=== PATIENT | male | born 1950 | race Two or more races ===

== ENCOUNTER 2018-04-24 09:14 | Day surgery (SDC) | payer MEDICARE, OTHER ==
[~2018-04-24] VITALS: Ht 177.8 cm; Wt 127.9 kg
[~2018-04-24 09:14] MED LIST: Cipro500 MG PO; Flagyl500 MG PO; Norco 5-325 Ta1 EACH PO
[2018-04-24] MEDS ORDERED: LISI20 PO (10:28)
[2018-04-24] MEDS ORDERED: AMLO5 PO (10:28)
[2018-04-24] MEDS ORDERED: Flonase 0.05% N16 GM (10:29)
[2018-04-24] MEDS ORDERED: MECL12.5 PO (10:29)
== END 2018-04-24 22:47 | disposition home or self-care (01) ==
LOC: ORSCMMR 09:14 → ORD 10:30 → ORSCMMR 22:47
PROVIDERS: Internal Medicine Gastroenterology
PROC: 0DB58ZX Excision of Esophagus, Via Natural or Artificial Opening Endoscopic, Diagnostic (ICD-10-PCS; principal; 2018-04-24 10:30)
PROC: 0DB68ZX Excision of Stomach, Via Natural or Artificial Opening Endoscopic, Diagnostic (ICD-10-PCS; principal; 2018-04-24 10:30)
PROC: 0DB48ZX Excision of Esophagogastric Junction, Via Natural or Artificial Opening Endoscopic, Diagnostic (ICD-10-PCS; principal; 2018-04-24 10:30)
DX: K21.0 Gastro-esophageal reflux disease with esophagitis (principal); K22.2 Esophageal obstruction; K44.9 Diaphragmatic hernia without obstruction or gangrene; I10 Essential (primary) hypertension; Z87.891 Personal history of nicotine dependence; Z79.899 Other long term (current) drug therapy
CPT/HCPCS: 88305; 88342; J7120

== ENCOUNTER → 2019-02-11 | Outpatient (CLI) | payer MEDICARE, OTHER ==
[~2019-02-11] MED LIST changes: +AMLO5 PO; +Flonase 0.05% N16 GM; +LISI20 PO; +MECL12.5 PO
== END | disposition home or self-care (01) ==
LOC: LAB SHORT 07:33 → PLD 07:33
DX: D11.0 Benign neoplasm of parotid gland (principal); K11.1 Hypertrophy of salivary gland
CPT/HCPCS: 88173

== ENCOUNTER → 2021-01-02 | Outpatient (CLI) | payer MEDICARE, OTHER | END | disposition home or self-care (01) | LOC: LAB SHORT 07:51 | DX: D48.5 Neoplasm of uncertain behavior of skin (principal) | CPT/HCPCS: 88305; 88312 ==

== ENCOUNTER → 2023-12-06 | Outpatient (CLI) | payer MEDICARE, OTHER ==
[2023-12-06 10:01] LABS: BASOPHILS PERCENT AUTO 0 % (0-2); EOSINOPHILS ABSOLUTE AUTO 0.05 K/mm3 (0.00-0.68); EOSINOPHILS PERCENT AUTO 2 % (0-6); Hematocrit 36.7 % (37.0-53.0); Hemoglobin 12.8 g/dL (13.5-17.5); IMMATURE GRAN ABSOLUTE AUTO 0.01 K/mm3 (0.00-0.10); IMMATURE GRAN PERCENT AUTO 0 % (0-1); LYMPHOCYTES ABSOLUTE AUTO 1.23 K/mm3 (0.84-5.20); LYMPHOCYTES PERCENT AUTO 36 % (21-46); MONOCYTES ABSOLUTE AUTO 0.16 K/mm3 (0.16-1.47); MONOCYTES PERCENT AUTO 5 % (4-13); Mean Corpuscular HGB 34.4 pg (26.0-34.0); Mean Corpuscular HGB Conc 34.9 g/dL (31.5-36.5); Mean Corpuscular Volume 99 fL (80-100); Mean Platelet Volume 9.9 fL (9.1-12.4); NEUTROPHILS ABSOLUTE AUTO 1.96 K/mm3 (1.96-9.15); NEUTROPHILS PERCENT AUTO 57 % (41-73); Platelet Count 127 K/mm3 (150-400); RDW Coefficient Variation 13.8 % (11.7-14.2); RDW Standard Deviation 50.2 fL (35.1-46.3); Red Blood Cell Count 3.72 M/mm3 (4.30-5.90); White Blood Cell Count 3.41 K/mm3 (4.00-11.30)
[2023-12-06 10:23] LABS: Albumin, Blood 3.5 g/dL (3.4-5.0); Albumin/Globulin Ratio 0.9 (0.8-1.8); Bilirubin, Total 0.4 mg/dL (0.1-1.0); Bun/Creatinine Ratio 15.8 (12.0-20.0); Calcium, Blood 8.6 mg/dL (8.5-10.1); Creatinine, Blood 1.14 mg/dL (0.60-1.20); Globulin, Blood 3.7 g/dL (2.2-4.0); Potassium, Blood 3.9 mmol/L (3.5-5.5); Total Protein, Blood 7.2 g/dL (6.4-8.2)
== END ==
LOC: LAB SHORT 09:39 → LAB 09:39
PROVIDERS: Physician Assistant
DX: I10 Essential (primary) hypertension (principal); R73.01 Impaired fasting glucose
CPT/HCPCS: 36415; 80053; 82607; 82746; 83036; 85025

== ENCOUNTER 2025-06-01 10:27 | Day surgery (SDC) | payer MEDICARE, OTHER ==
[~2025-06-01] VITALS: Ht 177.8 cm; Wt 128.4 kg
[~2025-06-01 10:27] MED LIST changes: +Balanced Salt Epinephrine Irrigation Solution 500 mL IR SCH; +Moxifloxacin HCL 0.5 MG/0.1 ML 0.4MLSYR RIGHTEYE SCH; +Ondansetron 4 MG SoluTab MM PRN; +PHENYLEPHRINE\\TROPICAMIDE\\TETRACAINE OPHTHALMIC DILATING SOLN RIGHTEYE PRN; +Povidone-Iodine 450 DROP/30 ML Solution ONE; +Povidone-Iodine 450 DROP/30 ML Solution RIGHTEYE SCH; +Tetracaine HCl/Pf 0.5% Opth Soln 4 ml ONE
--- NOTE | 2025-06-01 10:57 | NUR ---
06/01/25 1057 Yamseen Sabillon PT REPORTS ANXIETY LEVEL 4.5/10 PRIOR TO VALIUM 10MG PO @ 1059
[2025-06-01] MEDS ORDERED: HYDCHL25 PO (10:58)
[2025-06-01] MEDS ORDERED: Prinivil10 MG PO (10:58)
[2025-06-01] MEDS ORDERED: DILTIAZEM 24HR240 M4 PO (10:58)
[2025-06-01] MEDS ORDERED: TADALAFIL2.5 MG PO (10:58)
[2025-06-01] MEDS ORDERED: BUPROPION XL150 M1 PO (10:59)
--- NOTE | 2025-06-01 11:34 | NUR ---
06/01/25 1134 Payal Hankins HR:57 RR:16 SPO2:98% ON 10L BLOW BY O2 BP:113/50
[2025-06-01 14:03] VITALS: BP 127/66
== END 2025-06-01 12:15 | disposition home or self-care (01) ==
LOC: ORSCSDS 10:27
PROVIDERS: Student in an Organized Health Care Education/Training Program
PROC: 08RJ3JZ Replacement of Right Lens with Synthetic Substitute, Percutaneous Approach (ICD-10-PCS; principal; 2025-06-01 12:00)
DX: H25.813 Combined forms of age-related cataract, bilateral (principal); I48.91 Unspecified atrial fibrillation; I10 Essential (primary) hypertension; Z79.899 Other long term (current) drug therapy; Z87.891 Personal history of nicotine dependence
CPT/HCPCS: A9270; V2632